=== PATIENT | male | born 1980 | race Caucasian/White ===

== ENCOUNTER → 2019-12-09 10:19 | Outpatient (CLI) | payer OTHER, SELFPAY ==
[2019-12-09 11:16] LABS: Hemoglobin A1C% w Est Avg Glu 5.3 % (4.0-6.0)
[2019-12-09 11:38] LABS: Alanine Aminotransferase 22 IU/L (<50); Albumin 4.6 g/dL (3.5-5.0); Albumin Globulin Ratio 1.5 (1.0-2.8); Alkaline Phosphatase 108 U/L (38-126); Aspartate Aminotransferase 29 IU/L (17-59); BUN Creatinine Ratio 19.2 (6-22); Bilirubin Total 1.1 mg/dL (0.2-1.3); Blood Urea Nitrogen 15 mg/dL (9-20); Calcium 9.6 mg/dL (8.4-10.2); Carbon Dioxide 29 mmol/L (22-32); Chloride 101 mmol/L (98-107); Cholesterol 157 mg/dL (140-199); Estimated Glomerular Filt Rate > 60.0 mL/min (>60); Globulin 3.1 g/dL (1.7-4.1); Glucose 91 mg/dL (70-100); HDL Cholesterol 43 mg/dL (40-60); HEMOLYSIS < 15 (0-50); LDL Cholesterol Calculated 98 mg/dL (<100); Potassium 4.3 mmol/L (3.4-5.1); Sodium 137 mmol/L (137-145); Total Protein 7.7 g/dL (6.3-8.2); Triglycerides 81 mg/dL (35-150)
[2019-12-09 11:47] LABS: Creatinine Urine Random 89.2 mg/dL
[2019-12-09 11:48] LABS: Microalbumin Urine Random < 0.6 mg/dL (0-1.6)
[2019-12-09 12:07] LABS: Thyroid Stimulating Hormone 2.86 uIU/mL (0.47-4.68)
== END ==
PROVIDERS: PCP Family Medicine; Referring Provider Family Medicine; Visit Provider Family Medicine
DX: Z00.01 Encounter for general adult medical examination with abnormal findings (principal); I10 Essential (primary) hypertension
CPT/HCPCS: 36415; 80053; 80061; 82043; 82570; 83036; 84443

== ENCOUNTER → 2019-12-12 15:32 | Outpatient (CLI) | payer OTHER, SELFPAY ==
--- NOTE | 2019-12-12 15:35 | DI.RAD.S_ITS ---
PROCEDURE: XR WRIST LT MIN 3V INDICATIONS: left wrist sprain TECHNIQUE: 3 views of the wrist were acquired. COMPARISON: None. FINDINGS: Bones: No fractures or dislocations. No suspicious bony lesions. Scaphoi: No trauma. Soft tissues: No suspicious soft tissue calcifications. IMPRESSION: Source of current pain is not identified. No trauma found. Dictated by: Reginald Orta M.D. on 12/12/2019 at 17:10 Approved by: Reginald Orta M.D. on 12/12/2019 at 17:10
--- NOTE | 2019-12-12 15:35 | DI.RAD.S_ITS ---
PROCEDURE: XR FOOT LT MIN 3V INDICATIONS: left foot pain TECHNIQUE: 3 views of the foot were acquired. COMPARISON: None. FINDINGS: Bones: No fractures or dislocations. No suspicious bony lesions. A prominent accessory ossicle is present at the posterior margin of the posterior facet of the subtalar joint. This was also seen on ankle plain films today. Soft tissues: No tibiotalar joint effusion. Achilles tendon appears normal. IMPRESSION: No trauma found. Relatively prominent posterior margin subtalar joint accessory ossicle noted. This measures an estimated 1.4 cm in maximal dimension. Dictated by: Reginald Orta M.D. on 12/12/2019 at 17:15 Approved by: Reginald Orta M.D. on 12/12/2019 at 17:16
--- NOTE | 2019-12-12 15:35 | DI.RAD.S_ITS ---
PROCEDURE: XR ANKLE LT MIN 3V INDICATIONS: left ankle pain TECHNIQUE: 3 views of the ankle were acquired. COMPARISON: None. FINDINGS: Bones: No fractures or dislocations. Ankle mortise is normally aligned. No suspicious bony lesions. Soft tissues: No tibiotalar joint effusion. Achilles tendon appears normal. IMPRESSION: No trauma found. Source of pain within the marrow space is not seen. There is, however, what appears to be a relatively prominent accessory ossicle at the posterior margin of the subtalar joint seen on the lateral view only. This might contribute to atypical pain in that area. Dictated by: Reginald Orta M.D. on 12/12/2019 at 17:14 Approved by: Reginald Orta M.D. on 12/12/2019 at 17:15
--- NOTE | 2019-12-12 15:35 | DI.RAD.S_ITS ---
PROCEDURE: XR FOOT RT MIN 3V INDICATIONS: right foot foreign body TECHNIQUE: 3 views of the foot were acquired. COMPARISON: None. FINDINGS: Bones: No fractures or dislocations. No suspicious bony lesions. Soft tissues: No tibiotalar joint effusion. Achilles tendon appears normal. Note is made of a thin wire like foreign body superimposed on the interspace between the 3rd and 4th metatarsal heads, seen well on one view only. This is superimposed on the 3rd metatarsal head on 1 of the three views, almost completely obscuring the structure. It is not clearly visualized on the lateral view. IMPRESSION: Thin foreign body, measuring less than 1 mm in thickness and approximately 5 mm in length. The structure appears relatively radiolucent for a metallic foreign body, depending on the composition. Dictated by: Reginald Orta M.D. on 12/12/2019 at 17:10 Approved by: Reginald Orta M.D. on 12/12/2019 at 17:13
== END ==
PROVIDERS: PCP Family Medicine; Referring Provider Family Medicine; Visit Provider Family Medicine
DX: S63.502A Unspecified sprain of left wrist, initial encounter (principal); S90.851A Superficial foreign body, right foot, initial encounter; S93.602A Unspecified sprain of left foot, initial encounter; M25.572 Pain in left ankle and joints of left foot; X58.XXXA Exposure to other specified factors, initial encounter
CPT/HCPCS: 73110; 73610; 73630

== ENCOUNTER → 2020-01-28 13:47 | Outpatient (CLI) | payer BC, SELFPAY ==
[2020-01-28 15:13] LABS: COVID19 -Nasal RAPID Negative (Negative)
== END ==
PROVIDERS: PCP Family Medicine; Visit Provider Physician Assistant
DX: Z11.59 Encounter for screening for other viral diseases (principal)
CPT/HCPCS: 87635

== ENCOUNTER 2020-07-06 12:59 | Emergency (ER) | payer BC, SELFPAY ==
[2020-07-06 13:05] VITALS: BP 156/86; PULSE 65; RESP 15; TEMP 37.1; O2SAT 100; BMI 35.9
[2020-07-06] MEDS: BUPIVACAINE 0.25% W/ EPI (PF) 10 ML VIAL 5 ML SUBCUT (14:31)
--- NOTE | 2020-07-06 14:42 | ED.DENTAL ---
HPI - Dental/Oral General Chief complaint: Dental/Oral Stated complaint: states abcess, right side face/ jaw Time Seen by Provider: 07/06/20 14:03 Source: patient Mode of arrival: Ambulatory Limitations: no limitations History of Present Illness HPI Narrative: Patient is a 39-year-old male with his history of hypertension presenting with 1 week of dental pain. He was started on amoxicillin by the dentist 5 days ago however he had increased facial swelling and was switched to clindamycin yesterday. He took an initial dose of 600 mg and then another 300 this morning. He is having increase in facial swelling he feels like his neck is swelling it is sometimes hard to swallow. He has no difficulty breathing he does not have drooling. No fever or chills. He denies any tongue pain or swelling. MD Complaint: tooth pain Related Data Previous Rx's Medication Instructions Recorded amlodipine 5 mg tablet 5 mg PO DAILY #60 tab 02/03/20 losartan 50 mg tablet 50 mg PO DAILY #60 tab 02/03/20 hydrocodone-acetaminophen 1 tab PO Q6H PRN #10 tab 07/06/20 Allergies Allergy/AdvReac Type Severity Reaction Status Date / Time No Known Drug Allergies Allergy Verified 07/06/20 13:12 Review of Systems Review of Systems Narrative: GENERAL: Denies chills,fever HEENT: See HPI RESPIRATORY: Denies dyspnea, cough, wheezing CARDIOVASCULAR: Denies chest pain, palpitations GASTROINTESTINAL: Denies nausea, vomiting MUSCULOSKELETAL: Denies extremity pain, injury SKIN: No rash, no laceration, no pruritus NEUROLOGIC: Denies weakness, dizziness, headache, numbness 8 point review of systems is negative except for those stated above and HPI Patient History Medical History Anxiety Breathing difficulty Depression Eczema Foot pain Hypertension Marijuana smoker Numbness Shoulder pain Substance abuse Surgical History Anesthesia History of appendectomy (~1999) History of foot surgery (~2009) Family History Father Lung disease Diabetes mellitus Mother Joint inflammation Mental health problem Social History Smoking Status: Current every day smoker Smoking Status: Current every day smoker alcohol intake frequency: holidays/special occasions only Substance Use Type: does not use Exam Initial Vital Signs Initial Vital Signs: Vital Signs Temperature 98.7 F 07/06/20 13:05 Pulse Rate 65 07/06/20 13:05 Respiratory Rate 15 07/06/20 13:05 Blood Pressure 156/86 H 07/06/20 13:05 Pulse Oximetry 100 07/06/20 13:05 GENERAL: Well-appearing, well-nourished and in no acute distress. HEENT: Of right lower facial swelling no erythema but obvious probable abscess questionable dental abscess CARDIOVASCULAR: peripheral pulses in tact, cap refill <2 sec RESPIRATORY: No respiratory distress, speaks in full sentences without difficulty ABDOMEN: Soft, nontender, no guarding or rebound EXTREMITIES: Normal range of motion, no clubbing or edema. Neurovascularly intact NEUROLOGICAL: Cranial nerves II through XII grossly intact. Normal gait and speech. SKIN: Warm, dry, no petechiae, no rashes or lesions. Procedures Abscess I/D I&D #1: Site: other (Right lower dental) Side (if applicable): right Local Anesthetic: bupivacaine 0.25% and with epi Amount of anesthesia used (mL): 2 Technique: needle aspiration Amount of fluid expressed (mL): 0 Nerve Block Nerve Block 1: Time out performed: Yes Local Anesthetic: bupivacaine 0.25% and with epi Side: right Intraoral Nerve Block: supraperiosteal Procedure Successful: Yes Patient Tolerated Procedure: Well Complications: none Course Orders Ordered: ED Orders 07/06/20 14:42 CT soft tissue neck w con Stat 07/06/20 15:20 Blood Culture Stat Complete Blood Count AUTO DIFF Stat Comprehensive Metabolic Panel Stat Lactate (Lactic Acid) Stat Discontinued Medications Bupivacaine HCl/Epinephrine Bitart (Bupivacaine 0.25% W/ Epi (Pf) 10 Ml Vial) 5 ml SUBCUT NOW ONE Stop: 07/06/20 14:09 Last Admin: 07/06/20 14:31 Dose: 5 ml Documented by: PATTY Clindamycin Phosphate (Cleocin) 600 mg in 50 mls @ 50 mls/hr IV NOW ONE Stop: 07/06/20 16:39 Last Infusion: 07/06/20 16:52 Dose: 0 mls/hr Documented by: Admin: 07/06/20 15:44 Dose: 50 mls/hr Documented by: PATTY Ketorolac Tromethamine (Ketorolac 30 Mg/Ml Vial) 30 mg IV NOW ONE Stop: 07/06/20 15:01 Last Admin: 07/06/20 15:04 Dose: 30 mg Documented by: PATTY Vital Signs Vital signs: Vital Signs - 8 hr 07/06/20 13:05 07/06/20 15:50 07/06/20 16:29 Temperature 98.7 F 98.0 F Pulse Rate 65 52 L 60 Respiratory Rate 15 16 16 Blood Pressure 156/86 H 152/74 H 154/78 H Pulse Oximetry 100 98 98 MDM - Dental/Oral Lab Data Attestation: I reviewed the patient's lab results. Result diagrams: 07/06/20 15:20 07/06/20 15:20 Labs: Lab Results 07/06/20 07/06/20 07/06/20 Range/Units 15:20 15:20 15:20 WBC 15.5 H (4.5-11.0) X10^3/uL RBC 5.01 (4.5-5.9) X10^6/uL Hgb 14.9 (13.5-17.5) g/dL Hct 45.1 (41-53) % MCV 90.0 (80-100) fL MCH 29.8 (26-34) PG MCHC 33.1 (30-36) % RDW 13.4 (11.6-14.8) % Plt Count 273 (150-400) X10^3/uL Neut % (Auto) 81.0 H (50-75) % Lymph % (Auto) 10.7 L (25-40) % Evangeline % (Auto) 7.9 (3-14) % Eos % (Auto) 0.1 L (2-4) % Baso % (Auto) 0.3 (0-2) % Neut # (Auto) 67699 H (2063-2855) /uL Lymph # (Auto) 1700 (9732-6731) /uL Evangeline # (Auto) 1200 H (0-900) /uL Eos # (Auto) 0 (0-450) /uL Baso # (Auto) 0 (0-100) /uL Sodium 140 (137-145) mmol/L Potassium 3.9 (3.4-5.1) mmol/L Chloride 104 (98-107) mmol/L Carbon Dioxide 25 (22-32) mmol/L BUN 7 L (9-20) mg/dL Creatinine 0.74 (0.66-1.25) mg/dL Estimated GFR > 60.0 (>60) mL/min BUN/Creatinine Ratio 9.5 (6-22) Glucose 96 (70-100) mg/dL Lactate 1.0 (0.7-2.1) mmol/L Calcium 9.4 (8.4-10.2) mg/dL Total Bilirubin 0.6 (0.2-1.3) mg/dL AST 27 (17-59) IU/L ALT 18 (<50) IU/L Alkaline Phosphatase 106 (38-126) U/L Total Protein 8.1 (6.3-8.2) g/dL Albumin 4.8 (3.5-5.0) g/dL Globulin 3.3 (1.7-4.1) g/dL Albumin/Globulin Ratio 1.5 (1.0-2.8) Imaging Data CT soft tissue neck: Radiologist's Impression: PROCEDURE: CT SOFT TISSUE NECK W CON INDICATIONS: right sided facial and neck swelling with abcess TECHNIQUE: After the administration of intravenous contrast, 3.0 mm axial sections acquired from the sella to the aortic arch. Additional oblique axial 3.0 mm sections acquired through the pharynx. 3 mm thick coronal and sagittal reformats were generated. For radiation dose reduction, the following was used: automated exposure control. COMPARISON: None. FINDINGS: Image quality: Excellent. Lymph nodes: No enlarged lymph nodes seen throughout the neck. Vessels: Visualized vasculature appears patent. Neck spaces: The oropharynx, nasopharynx, and pharynx demonstrate no mucosal lesions. The vocal cords, false vocal cords, pyriform sinuses, epiglottis, vallecula, and tongue base all appear normal. Extensive soft tissue swelling noted in the right lower face and submandibular soft tissues compatible with cellulitis. Glands: The parotid and submandibular glands appear normal. Thyroid gland is normal.. Miscellaneous: Visualized brain and orbits appear normal. Lung apices appear clear. Superficial soft tissues appear normal. Bones: Lucency noted adjacent to the root of right lower mandible with small adjacent cortical erosion compatible with periapical tooth abscess. There is a tiny fluid collection with internal air in the buccal soft tissues adjacent to the right mandible at the right 1st mandibular molar that measures approximately 6 millimeters in diameter compatible with small abscess. Visualized sinuses and mastoids appear unremarkable. IMPRESSION: 1. Right mandibular 1st molar periapical abscess with fistulous connection to 6 millimeter abscess in the adjacent buccal soft tissues. 2. Extensive lower right face soft tissue and right submandibular soft tissue cellulitis. Dictated by: Tiffanie Rizvi MD, PhD on 07/06/2020 at 15:01 Approved by: Tiffanie Rizvi MD, PhD on 07/06/2020 at 15:09 [facility] Narrative Medical decision making narrative: Patient has obvious right-sided facial swelling with known dental abscess. No sign of Sy angina or deep neck infection. CT does show 6 mm abscess at the back molar. I and D was unsuccessful unfortunately. At this time recommend continuing clindamycin. He was given 1 dose of IV clindamycin in the ED along with Toradol. He states that the tightness that he was feeling is overall improved he does not have difficulty breathing or swallowing no tongue pain and no longer having neck discomfort. He is scheduled to see a dentist on Thursday in 3 days. Discharge Plan Departure Patient Disposition: Home Clinical Impression: Abscess, dental Instructions: Tooth Abscess Activity Restrictions/Additional Instructions: *You have been diagnosed with dental abscess *What to do: At this time recommend continuing on with clindamycin. You do have a dental abscess at this time it was too small to drain. *Continue to take medications as directed Continue clindamycin as prescribed Motrin 600 mg every 6-8 hours if needed for [id number] pain [place] 1 tablet every 6 hours if needed for severe pain *Follow up with your primary care provider in 2-3 days *Return to ER if you should have increasing facial swelling, difficulty swallowing or breathing, or any new, worsening or concerning symptoms CONTROLLED SUBSTANCE DISCHARGE (Narcotoic/benzodiazepine/Flexeril/Phenergan) 1. You have been prescribed narcotic medications, it does have acetaminophen/Tylenol/paracetamol in it, DO NOT TAKE MORE THAN 4,00mg in 24 hours of Tylenol. TRAMADOL DOES NOT CONTAIN TYLENOL 2. Please understand that we cannot provide further refills of narcotics, benzodiazepines or controlled substances through the ED and her pain management will need to be through your provider. 3. While on these medications you cannot drive or operate heavy machinery. 4. You cannot sign legal documents or perform any duties such as this. 5. As long as you're taking opiate pain medications he should also be taking a stool softener such as Colace, Dulcolax, MiraLAX or prune juice, to help avoid constipation. Prescriptions: New hydrocodone-acetaminophen 5-325 mg tablet 1 tab PO Q6H PRN (Reason: pain) Qty: 10 RF: 0 No Action losartan 50 mg tablet 50 mg PO DAILY Qty: 60 RF: 2 amlodipine [Norvasc] 5 mg tablet 5 mg PO DAILY Qty: 60 RF: 2 Referrals: Jostin Mcmanus MD [Primary Care Provider] -
[2020-07-06] MEDS: KETOROLAC 30 MG/ML VIAL IV (15:04)
[2020-07-06 15:35] LABS: Alanine Aminotransferase 18 IU/L (<50); Albumin 4.8 g/dL (3.5-5.0); Albumin Globulin Ratio 1.5 (1.0-2.8); Alkaline Phosphatase 106 U/L (38-126); Aspartate Aminotransferase 27 IU/L (17-59); BUN Creatinine Ratio 9.5 (6-22); Bilirubin Total 0.6 mg/dL (0.2-1.3); Blood Urea Nitrogen 7 mg/dL (9-20); Calcium 9.4 mg/dL (8.4-10.2); Carbon Dioxide 25 mmol/L (22-32); Chloride 104 mmol/L (98-107); Estimated Glomerular Filt Rate > 60.0 mL/min (>60); Globulin 3.3 g/dL (1.7-4.1); Glucose 96 mg/dL (70-100); HEMOLYSIS < 15 (0-50); Potassium 3.9 mmol/L (3.4-5.1); Sodium 140 mmol/L (137-145); Total Protein 8.1 g/dL (6.3-8.2)
[2020-07-06 15:40] LABS: Add Manual Diff / Slide Review NO; Basophils Absolute Auto 0 /uL (0-100); Basophils Percent Auto 0.3 % (0-2); Eosinophils Absolute Auto 0 /uL (0-450); Eosinophils Percent Auto 0.1 % (2-4); Hematocrit 45.1 % (41-53); Hemoglobin 14.9 g/dL (13.5-17.5); Lymphocytes Absolute Auto 1700 /uL (1100-4500); Lymphocytes Percent Auto 10.7 % (25-40); Mean Corpuscular HGB Conc 33.1 % (30-36); Mean Corpuscular Hemoglobin 29.8 PG (26-34); Monocytes Absolute Auto 1200 /uL (0-900); Monocytes Percent Auto 7.9 % (3-14); Neutrophils Absolute Auto 12600 /uL (1500-7000); Platelet Count 273 X10^3/uL (150-400); Red Blood Cell Count 5.01 X10^6/uL (4.5-5.9); Red Cell Distribution Width 13.4 % (11.6-14.8); White Blood Cell Count 15.5 X10^3/uL (4.5-11.0)
[2020-07-06] MEDS: CLINDAMYCIN 600 MG/50 ML PIGGYBACK 50 MG IV (15:44)
[2020-07-06 15:50] VITALS: BP 152/74; PULSE 52; RESP 16; O2SAT 98
[2020-07-06 16:29] VITALS: BP 154/78; PULSE 60; RESP 16; TEMP 36.7; O2SAT 98
== END 2020-07-06 16:54 | disposition home or self-care (01) ==
PROVIDERS: Emergency Provider Emergency Medicine; PCP Family Medicine
DX: K04.7 Periapical abscess without sinus (principal)
CPT/HCPCS: 10060; 36415; 64450; 70491; 80053; 83605; 85025; 87040; 96365; 96375; 99284; J1885; Q9967

== ENCOUNTER → 2021-01-11 17:10 | Outpatient (CLI) | payer OTHER, SELFPAY ==
[2021-01-11] MEDS: COVID-19 VACC #3, MRNA(MOD) 50 MCG/0.25 ML VIAL IM (17:22)
== END ==
PROVIDERS: PCP Family Medicine; Visit Provider Internal Medicine
DX: Z23 Encounter for immunization (principal)
CPT/HCPCS: 0013A; 91301

== ENCOUNTER → 2021-06-19 12:15 | Outpatient (CLI) | payer OTHER, SELFPAY ==
[2021-06-19 16:27] LABS: Creatinine Urine Random 314.4 mg/dL
[2021-06-19 16:31] LABS: Microalbumi Creatinin Ratio Ur 5.4 ug/mg CR (<30); Microalbumin Urine Random 1.7 mg/dL (0-1.6)
[2021-06-21 08:26] LABS: Add Manual Diff / Slide Review NO; Basophils Absolute Auto 0 /uL (0-100); Basophils Percent Auto 0.3 % (0-2); Eosinophils Absolute Auto 100 /uL (0-450); Eosinophils Percent Auto 1.1 % (2-4); Hematocrit 47.2 % (41-53); Hemoglobin 15.9 g/dL (13.5-17.5); Lymphocytes Absolute Auto 2700 /uL (1100-4500); Lymphocytes Percent Auto 33.8 % (25-40); Mean Corpuscular HGB Conc 33.7 % (30-36); Mean Corpuscular Hemoglobin 30.1 PG (26-34); Mean Corpuscular Volume 89.1 fL (80-100); Monocytes Absolute Auto 800 /uL (0-900); Monocytes Percent Auto 10.1 % (3-14); Neutrophils Absolute Auto 4300 /uL (1500-7000); Neutrophils Percent Auto 54.7 % (50-75); Platelet Count 254 X10^3/uL (150-400); Red Blood Cell Count 5.29 X10^6/uL (4.5-5.9); Red Cell Distribution Width 13.4 % (11.6-14.8); White Blood Cell Count 7.9 X10^3/uL (4.5-11.0)
[2021-06-21 08:48] LABS: Erythrocyte Sedimentation Rate 2 MM/HR (0-15)
[2021-06-21 08:55] LABS: Alanine Aminotransferase 27 IU/L (<50); Albumin 4.7 g/dL (3.5-5.0); Albumin Globulin Ratio 1.6 (1.0-2.8); Alkaline Phosphatase 86 U/L (38-126); Aspartate Aminotransferase 38 IU/L (17-59); BUN Creatinine Ratio 15.9 (6-22); Bilirubin Total 1.1 mg/dL (0.2-1.3); Blood Urea Nitrogen 13 mg/dL (9-20); C-Reactive Protein Quant 0.7 mg/dL (<1.0); Calcium 9.1 mg/dL (8.4-10.2); Carbon Dioxide 28 mmol/L (22-32); Chloride 103 mmol/L (98-107); Cholesterol 147 mg/dL (140-199); Estimated Glomerular Filt Rate > 60 mL/min (>60); Globulin 2.9 g/dL (1.7-4.1); Glucose 86 mg/dL (70-100); HDL Cholesterol 45 mg/dL (40-60); HEMOLYSIS < 15 (0-50); LDL Cholesterol Calculated 90 mg/dL (<100); Potassium 4.1 mmol/L (3.4-5.1); Sodium 141 mmol/L (137-145); Total Protein 7.6 g/dL (6.3-8.2); Triglycerides 61 mg/dL (35-150)
[2021-06-21 12:07] LABS: Interpretation Negative (Negative)
[2021-06-24 17:43] LABS: ANA Screen, IFA Negative (.)
== END ==
PROVIDERS: PCP Family Medicine; Referring Provider Family Medicine; Visit Provider Family Medicine
DX: I10 Essential (primary) hypertension (principal); R23.0 Cyanosis; K30 Functional dyspepsia
CPT/HCPCS: 36415; 80053; 80061; 82043; 82570; 83013; 85025; 85651; 86038; 86140

== ENCOUNTER → 2021-09-06 10:08 | Outpatient (CLI) | payer OTHER, SELFPAY ==
--- NOTE | 2021-09-06 10:10 | DI.RAD.S_ITS ---
PROCEDURE: XR FOOT RT MIN 3V INDICATIONS: possible foreign object in right foot TECHNIQUE: 3 views of the foot were acquired. COMPARISON: Located Within [facility], CR, XR FOOT LT MIN 3V, 12/12/2019, 15:26. FINDINGS: Bones: No acute fracture or dislocation. No suspicious bony lesions. Soft tissues: No tibiotalar joint effusion. Achilles tendon appears normal. A linear radiodense foreign body is present within the plantar tissues at the 4th TMT joint. IMPRESSION: Foreign body within the plantar tissues at the 4th digit as above. Dictated by: Corinna Diaz M.D. on 09/06/2021 at 11:08 Approved by: Corinna Diaz M.D. on 09/06/2021 at 11:09
--- NOTE | 2021-09-06 10:10 | DI.RAD.S_ITS ---
PROCEDURE: XR SHOULDER LT MIN 2V INDICATIONS: left shoulder pain/numbness TECHNIQUE: 3 views of the shoulder were acquired. COMPARISON: None. FINDINGS: Bones: No fractures or dislocations. No suspicious bony lesions. Visualized ribs appear intact. Soft tissues: No suspicious soft tissue calcifications. IMPRESSION: No acute osseous abnormalities. If clinical symptoms persist or clinical suspicion for pathology is high, a repeat examination in 7-10 days, or advanced imaging such as CT or MRI is suggested for further evaluation. Dictated by: Daniel Toussaint M.D. on 09/06/2021 at 17:18 Approved by: Daniel Toussaint M.D. on 09/06/2021 at 17:18
== END ==
PROVIDERS: PCP Family Medicine; Referring Provider Pediatrics; Visit Provider Pediatrics
DX: S90.454A Superficial foreign body, right lesser toe(s), initial encounter (principal); G89.29 Other chronic pain; M25.512 Pain in left shoulder
CPT/HCPCS: 73030; 73630

== ENCOUNTER → 2021-10-25 18:37 | Outpatient (CLI) | payer OTHER, SELFPAY ==
--- NOTE | 2021-10-25 18:38 | DI.MRI.S_ITS ---
PROCEDURE: MR SHOULDER LT WO CON INDICATIONS: left shoulder pain/numbness TECHNIQUE: Noncontrast oblique coronal T2 fast spin echo with fat saturation, oblique sagittal T1 spin echo and T2 fast spin echo with fat saturation, axial T1 spin echo and T2 fast spin echo with fat saturation through the shoulder. COMPARISON: [facility], CR, XR SHOULDER LT MIN 2V, 09/06/2021, 9:57. FINDINGS: Image quality: Excellent. Rotator cuff: There is mild T2 signal elevation throughout the supraspinatus and infraspinatus tendons at the humeral insertion site extending to the musculotendinous junctions. There is low-grade partial-thickness articular surface tearing of the anterior, mid, and posterior supraspinatus as well as the mid and anterior infraspinatus tendons at the humeral insertion sites extending the musculotendinous junctions. Subscapularis and teres minor tendons are intact. No rotator cuff atrophy. Bones and bursae: No bone marrow contusions or fractures. Mild acromioclavicular joint degeneration. The acromion demonstrates conventional anatomy, without an os acromiale. No pathologic subacromial-subdeltoid or subcoracoid bursal fluid is present. Capsule and soft tissues: There is undercutting of the anteroinferior and posteroinferior labrum. The long head of the biceps tendon demonstrates normal location and morphology. The rotator interval appears normal, without fibrosis. The coracohumeral ligament is normal in thickness. IMPRESSION: 1. Supraspinatus and infraspinatus tendinopathy with superimposed low-grade partial-thickness tears. No full-thickness rotator cuff tear. 2. Acromioclavicular joint osteoarthritis. 3. Findings suggestive of glenoid labral tearing. Dictated by: Melissa Ragland M.D. on 10/29/2021 at 9:43 Approved by: Melissa Ragland M.D. on 10/29/2021 at 9:50
== END ==
PROVIDERS: PCP Family Medicine; Referring Provider Pediatrics; Visit Provider Pediatrics
DX: M25.512 Pain in left shoulder (principal); G89.29 Other chronic pain; R20.0 Anesthesia of skin; M75.112 Incomplete rotator cuff tear or rupture of left shoulder, not specified as traumatic; M19.012 Primary osteoarthritis, left shoulder
CPT/HCPCS: 73221

== ENCOUNTER → 2021-12-05 08:26 | Outpatient (CLI) | payer OTHER, SELFPAY | PROVIDERS: Family Provider Family Medicine; PCP Family Medicine; Referring Provider Pediatrics; Visit Provider Pediatrics | DX: M25.512 Pain in left shoulder (principal); G89.29 Other chronic pain; R20.0 Anesthesia of skin | CPT/HCPCS: 95885; 95886; 95912 ==

== ENCOUNTER → 2023-10-22 09:13 | Outpatient (CLI) | payer BC, SELFPAY ==
--- NOTE | 2023-10-22 09:14 | DI.RAD.S_ITS ---
PROCEDURE: XR ANKLE LT MIN 3V INDICATIONS: left ankle nodule TECHNIQUE: 3 views of the ankle were acquired. COMPARISON: [facility], CR, XR ANKLE LT MIN 3V, 12/12/2019, 15:26. FINDINGS: Bones: No fractures or dislocations. Ankle mortise is normally aligned. No suspicious bony lesions. An os trigonum is noted. Soft tissues: No tibiotalar joint effusion. Achilles tendon appears normal. IMPRESSION: No acute bony abnormality or significant effusion. Dictated by: Tomas Noguera M.D. on 10/22/2023 at 12:31 Approved by: Tomas Noguera M.D. on 10/22/2023 at 12:33
== END ==
PROVIDERS: Family Provider Family Medicine; PCP Family Medicine; Referring Provider Family Medicine; Visit Provider Family Medicine
DX: R22.42 Localized swelling, mass and lump, left lower limb (principal); Q74.2 Other congenital malformations of lower limb(s), including pelvic girdle
CPT/HCPCS: 73610

== ENCOUNTER → 2023-10-29 07:52 | Outpatient (CLI) | payer BC, SELFPAY | LOC: CAR 07:52 | PROVIDERS: Family Provider Family Medicine; PCP Family Medicine; Referring Provider Family Medicine; Visit Provider Family Medicine | DX: R00.2 Palpitations (principal) | CPT/HCPCS: 93246 ==

== ENCOUNTER → 2024-06-23 07:30 | Outpatient (CLI) | payer BC, SELFPAY ==
--- NOTE | 2024-06-23 07:31 | DI.US.S_ITS ---
PROCEDURE: US EXTREMITY NONVASC LOWER LT INDICATIONS: mass behind left lateral malleolus TECHNIQUE: Real-time scanning was performed of the left ankle, with image documentation. COMPARISON: [facility], CR, XR ANKLE LT MIN 3V, 10/22/2023, 9:12. FINDINGS: Focused ultrasound examination of left ankle near tip of the lateral malleolus shows a heterogeneously hypoechoic structure in posterior lateral aspect of left ankle soft tissue measures 3.2 x 2.8 x 3.3 cm in size and show no internal vascularity. There is also a 2nd hypoechoic structure slightly more inferior to the above-mentioned lesion and measures 1.6 x 2.7 x 2.8 cm in size and show no internal vascularity. IMPRESSION: Complex appearing cystic lesions seen in left posterior lateral ankle soft tissue at the level of lateral malleolus and show no internal vascularity. Finding may represent complex ganglion cyst versus cystic neoplasm. Consider MRI of ankle without and with contrast for further evaluation. Dictated by: Brian Valenzuela M.D. on 06/23/2024 at 13:04 Approved by: Brian Valenzuela M.D. on 06/23/2024 at 13:07
== END ==
PROVIDERS: Family Provider Family Medicine; PCP Family Medicine; Referring Provider Family Medicine; Visit Provider Family Medicine
DX: R22.42 Localized swelling, mass and lump, left lower limb (principal)
CPT/HCPCS: 76882

== ENCOUNTER → 2024-08-03 07:16 | Outpatient (CLI) | payer BC, SELFPAY ==
--- NOTE | 2024-08-03 07:17 | DI.MRI.S_ITS ---
PROCEDURE: MR ANKLE LT WO/W CON INDICATIONS: mass behind left lateral malleolus TECHNIQUE: Noncontrast sagittal T1 spin echo and T2 fast spin echo with fat saturation, axial proton density fast spin echo and T2 fast spin echo with fat saturation, axial T1 spin echo with fat saturation, coronal T1 spin echo and T2 fast spin echo with fat saturation through the ankle/hindfoot. Post-contrast axial, coronal, and sagittal T1 spin echo with fat saturation through the ankle/hindfoot. COMPARISON: None. FINDINGS: Image quality: Excellent. Bones and joints: No suspicious osseous enhancement. No bone marrow contusions or fractures. No hindfoot coalitions. No osteochondral injuries of the talar dome. Tiny osteochondral injury involving posterior lateral aspect of distal tibial plafond measures 3 mm in size is seen. Small amount of joint effusion, no loose bodies. Medial structures: The posterior tibialis, flexor digitorum longus, and flexor hallucis longus tendons are intact. Small amount of fluid distending flexor tendon sheath is seen . The posterior tibial neurovascular bundle appears normal within the tarsal tunnel, without extrinsic mass effect. The deltoid ligament and spring ligament are intact. Lateral structures: The anterior talofibular ligament is intact. The calcaneofibular, and posterior talofibular ligaments appear thickened with intrasubstance T2 hyperintense signal more notably involving posterior talofibular ligament.. More superiorly, the anterior and posterior tibiofibular ligaments appear intact, as is the intermalleolar ligament. The tibiofibular syndesmosis is normal in width at 2 mm or less. The peroneus longus and brevis tendons are thickened at the level lateral malleolus tip extending to the level of cuboid with small amount of fluid distending tendon sheath. The sinus tarsi demonstrates normal fatty signal, without edema, fibrosis, or cyst formation. Anterior structures: The tibialis anterior, extensor hallucis longus, and extensor digitorum longus tendons appear intact. The dorsal talonavicular ligament appears intact. Posterior and plantar structures: Achilles tendon is intact. Medial and lateral bands of the plantar fascia are of normal thickness. No abductor digiti quinti muscle atrophy to suggest Morales neuropathy. Lobulated cystic structure involving posterior lateral aspect of left ankle soft tissue dorsal to the tibiotalar joint contains thin internal septation and show no evidence of contrast enhancement. This structure measures up to 3.1 x 2.8 x 4.4 cm in largest AP, transverse and craniocaudal dimensions. IMPRESSION: 1. Lobulated cystic structure in posterior ankle soft tissue adjacent to posterior aspect of tibiotalar joint measures up to 3.1 x 2.8 x 4.4 cm in size. There is thin internal septation. No contrast enhancement is seen. No enhancing soft tissue mass or additional fluid collection. Finding may represent a large ganglion cyst possibly associated with tibiotalar joint. 2. No fracture or dislocation. Suggestion of tiny 3 mm osteochondral injury involving posterior lateral aspect of distal tibial plafond. No osteochondral injuries of talar dome. Small tibiotalar joint effusion, no loose bodies. 3. Low to moderate grade sprain/intrasubstance partial-thickness tear involving posterior talofibular ligament and calcaneal fibular ligament. No full-thickness ankle ligament rupture. 4. Low-grade tenosynovitis involving flexor tendons and peroneus tendons. No tendon rupture. Dictated by: Brian Valenzuela M.D. on 08/03/2024 at 10:51 Approved by: Brian Valenzuela M.D. on 08/03/2024 at 10:57
== END ==
PROVIDERS: Family Provider Family Medicine; PCP Family Medicine; Referring Provider Family Medicine; Visit Provider Family Medicine
DX: R93.89 Abnormal findings on diagnostic imaging of other specified body structures (principal); S93.492A Sprain of other ligament of left ankle, initial encounter; S93.412A Sprain of calcaneofibular ligament of left ankle, initial encounter; M65.872 Other synovitis and tenosynovitis, left ankle and foot; M25.472 Effusion, left ankle; X58.XXXA Exposure to other specified factors, initial encounter
CPT/HCPCS: 73723; A9579